=== PATIENT | male | born 1945 | race Caucasian/White ===

== ENCOUNTER 2017-09-22 16:00 | Emergency (ER) | payer OTHER ==
[~2017-09-22 16:00] MED LIST: AMIO200 PO; CITA20TA4 PO; D31000CA PO; HYDRA25 PO; LISI-363 PO; METF500 PO; PRAV40 PO; RIVA20 PO
[2017-09-22 16:20] VITALS: BP 142/71; PULSE 52; RESP 18; TEMP 98.5; O2SAT 98
--- NOTE | 2017-09-22 17:01 | RADRPT ---
EXAM DATE/TIME: 09/22/2017 16:39 [place] COMPARISON: CHEST SINGLE AP, November 21, 2015, 18:15. INDICATIONS : Shortness of breath today. MEDICAL HISTORY : Afib. Diabetes. SURGICAL HISTORY : Ablation. ENCOUNTER: Initial ACUITY: 1 day PAIN SCORE: 0/10 LOCATION: Bilateral chest FINDINGS: PA and lateral views of the chest demonstrate the lungs to be symmetrically aerated without evidence of mass, infiltrate or effusion. The cardiomediastinal contours are unremarkable. Osseous structure s demonstrate mild degenerative changes but are otherwise intact. CONCLUSION: 1. No acute cardiopulmonary findings identified. Heriberto Riddle MD on September 22, 2017 at 16:57 Board Certified Radiologist. This report was verified electronically.
[2017-09-22 17:02] LABS: AUTOMATED NEUTROPHIL # 9.1 TH/MM3 (1.8-7.7); BASOPHIL # 0.1 TH/MM3 (0-0.2); BASOPHIL % 0.6 % (0.0-2.0); EOSINOPHIL # 0.4 TH/MM3 (0-0.4); EOSINOPHIL % 3.8 % (0.0-4.0); HEMOGLOBIN 13.4 GM/DL (13.0-17.0); LYMPH % 6.4 % (9.0-44.0); LYMPHOCYTE # 0.7 TH/MM3 (1.0-4.8); MEAN CELL VOLUME 88.7 FL (80.0-100.0); MEAN CORPUSCULAR HEMOGLOBIN 30.5 PG (27.0-34.0); MEAN CORPUSCULAR HGB CONC 34.4 % (32.0-36.0); MEAN PLATELET VOLUME 8.7 FL (7.0-11.0); MONO % 8.8 % (0.0-8.0); NEUT % 80.4 % (16.0-70.0); PLATELET COUNT 207 TH/MM3 (150-450); RED CELL DISTRIBUTION WIDTH 13.9 % (11.6-17.2); WHITE BLOOD COUNT 11.3 TH/MM3 (4.0-11.0)
[2017-09-22 17:03] VITALS: RESP 55; O2SAT 96
--- NOTE | 2017-09-22 17:06 | PD ---
HPI Chief Complaint: Respiratory Symptoms Time Seen by Provider: 16:53 Travel History International Travel<30 days: No Contact w/Intl Traveler<30days: No Traveled to known affect area: No History of Present Illness HPI 71-year-old male with history of CHF, atrial fibrillation status post ablation, sleep apnea with CPAP use, presents for evaluation of dyspnea. For the past 4 days he has had cough and nasal congestion. The cough is productive. Symptoms are worse in the morning. He reports that 2 hours ago he had an episode in which she felt like he could not breathe at all. This lasted for 15-20 seconds and it occurred twice. Symptoms have since resolved. He is now asymptomatic. He denies any episodes of chest pain. He denies fevers or chills. He denies nausea, vomiting, abdominal pain, lower extremity edema. He has been compliant with his medication. He denies any dietary indiscretions. He has no other complaints at this time. PFSH Past Medical History Hx Anticoagulant Therapy: Yes Atrial Fibrillation: Yes Anxiety: No Depression: No Heart Rhythm Problems: Yes Cancer: No Cardiac Catheterization: No Cardiovascular Problems: Yes (HX OF A-FIB, ABLATION) High Cholesterol: No Chest Pain: Yes Congestive Heart Failure: No Diabetes: Yes Diminished Hearing: No Endocrine: Yes Genitourinary: No Hypertension: Yes Immune Disorder: No Musculoskeletal: No Neurologic: No Psychiatric: No Reproductive: No Respiratory: Yes (SLEEP APNEA - USES CPAP ) Sleep Apnea: Yes (C-PAP AT NIGHT) Thyroid Disease: No Past Surgical History Abdominal Surgery: No AICD: No Arteriovenous Shunt: No Cardiac Surgery: Yes (ABLATION ) Coronary Artery Bypass Graft: No Ear Surgery: No Endocrine Surgery: No Eye Surgery: No Genitourinary Surgery: No Gynecologic Surgery: No Insulin Pump: No Joint Replacement: No Oral Surgery: Yes Pacemaker: No Thoracic Surgery: No Tonsillectomy: Yes Other Surgery: Yes Social History Alcohol Use: No Tobacco Use: No Substance Use: No Allergies-Medications (Allergen,Severity, Reaction): Coded Allergies: No Known Allergies (Unverified , 11/21/15) Reported Meds & Prescriptions Reported Meds & Active Scripts Active Proair Hfa 8.5 GM Inh (Albuterol Sulfate) 90 Mcg/Act Aer 2 Puff INH Q4-6H PRN 108 mcg/actuation Doxycycline Hyclate 100 Mg Cap 100 Mg PO BID Reported Tamsulosin (Tamsulosin HCl) 0.4 Mg Cap 0.4 Mg HS Amlodipine (Amlodipine Besylate) 10 Mg Tab 10 Mg PO DAILY Finasteride 5 Mg Tab 5 Mg DAILY Do not crush. Xarelto (Rivaroxaban) 15 Mg Tab 15 Mg PO DAILY Citalopram (Citalopram Hydrobromide) 20 Mg Tab 20 Mg PO DAILY Bumetanide 1 Mg Tab 1 Mg PO DAILY Lisinopril 20 Mg Tab 20 Mg PO DAILY Pravastatin 40 Mg Tab 40 Mg PO DAILY Review of Systems Except as stated in HPI: all other systems reviewed are Neg Physical Exam Narrative GENERAL: Pleasant well-developed well-nourished male in no acute distress SKIN: Warm and dry. HEAD: Atraumatic. Normocephalic. EYES: Pupils equal and round. No scleral icterus. No injection or drainage. ENT: No nasal bleeding or discharge. Mucous membranes pink and moist. NECK: Trachea midline. No JVD. CARDIOVASCULAR: Regular rate and rhythm. No murmur appreciated. RESPIRATORY: No accessory muscle use. Clear to auscultation. Breath sounds equal bilaterally. GASTROINTESTINAL: Abdomen soft, non-tender, nondistended. Hepatic and splenic margins not palpable. MUSCULOSKELETAL: No obvious deformities. No clubbing. No cyanosis. No edema. NEUROLOGICAL: Awake and alert. No obvious cranial nerve deficits. Motor grossly within normal limits. Normal speech. PSYCHIATRIC: Appropriate mood and affect; insight and judgment normal. Data Data Last Documented VS Vital Signs Date Time Temp Pulse Resp B/P (MAP) Pulse Ox O2 Delivery O2 Flow Rate FiO2 09/22/17 17:20 97 21 09/22/17 17:03 57 18 Room Air 09/22/17 16:20 98.5 142/71 (94) Orders Orders Electrocardiogram (09/22/17 16:24) Complete Blood Count With Diff (09/22/17 16:24) Basic Metabolic Panel (Bmp) (09/22/17 16:24) Ckmb (Isoenzyme) Profile (09/22/17 16:24) Troponin I (09/22/17 16:24) Iv Access Insert/Monitor (09/22/17 16:24) Ecg Monitoring (09/22/17 16:24) Oxygen Administration (09/22/17 16:24) Oximetry (09/22/17 16:24) Act Partial Throm Time (Ptt) (09/22/17 16:24) Prothrombin Time / Inr (Pt) (09/22/17 16:24) B-Type Natriuretic Peptide (09/22/17 16:24) Chest, Pa & Lat (09/22/17 ) Albuterol-Ipratropium Neb (Duoneb Neb) (09/22/17 17:15) CKMB (09/22/17 16:30) CKMB% (09/22/17 16:30) Doxycycline (Vibramycin) (09/22/17 18:30) Ed Discharge Order (09/22/17 18:21) Labs Laboratory Tests Test 09/22/17 16:30 White Blood Count 11.3 TH/MM3 Red Blood Count 4.40 MIL/MM3 Hemoglobin 13.4 GM/DL Hematocrit 39.0 % Mean Corpuscular Volume 88.7 FL Mean Corpuscular Hemoglobin 30.5 PG Mean Corpuscular Hemoglobin Concent 34.4 % Red Cell Distribution Width 13.9 % Platelet Count 207 TH/MM3 Mean Platelet Volume 8.7 FL Neutrophils (%) (Auto) 80.4 % Lymphocytes (%) (Auto) 6.4 % Monocytes (%) (Auto) 8.8 % Eosinophils (%) (Auto) 3.8 % Basophils (%) (Auto) 0.6 % Neutrophils # (Auto) 9.1 TH/MM3 Lymphocytes # (Auto) 0.7 TH/MM3 Monocytes # (Auto) 1.0 TH/MM3 Eosinophils # (Auto) 0.4 TH/MM3 Basophils # (Auto) 0.1 TH/MM3 CBC Comment DIFF FINAL Differential Comment Prothrombin Time 12.0 SEC Prothromb Time International Ratio 1.2 RATIO Activated Partial Thromboplast Time 88.2 SEC Blood Urea Nitrogen 25 MG/DL Creatinine 1.38 MG/DL Random Glucose 98 MG/DL Calcium Level 8.9 MG/DL Sodium Level 139 MEQ/L Potassium Level 4.7 MEQ/L Chloride Level 103 MEQ/L Carbon Dioxide Level 31.7 MEQ/L Anion Gap 4 MEQ/L Estimat Glomerular Filtration Rate 51 ML/MIN Total Creatine Kinase 228 U/L Creatine Kinase MB 0.7 NG/ML Troponin I LESS THAN 0.02 NG/ML B-Type Natriuretic Peptide 100 PG/ML MDM Medical Decision Making Medical Screen Exam Complete: Yes Emergency Medical Condition: Yes Medical Record Reviewed: Yes Differential Diagnosis Bronchitis, pneumonia, CHF exacerbation, mucous plug, bronchiectasis Narrative Course 71-year-old male with cough and congestion for for 5 days presents after having 226 abdominal pain which he felt like he could not breathe today. He appears well. Currently asymptomatic. Lab work, chest x-ray were obtained in triage. Chest x-ray reveals no acute abnormalities. CBC reveals a WBC count 11.3. BMP reveals a GFR 51, cardiac enzymes negative, BNP within normal limits. The patient was given a DuoNeb treatment which he reports seem to help as well. Plan is to discharge him with doxycycline and albuterol inhaler. Diagnosis Primary Impression: Bronchitis Additional Instructions: Medication as prescribed. Use [id number] guaifenesin as a cough expectorant. Follow-up with primary care physician and return for any emergent medical conditions. Med/Other Pt SpecificInfo: Prescription(s) given Scripts Albuterol 8.5 GM Inh (Proair Hfa 8.5 GM Inh) 90 Mcg/Act Aer 2 PUFF INH Q4-6H Y for SHORTNESS OF BREATH, #1 INHALER 0 Refills 108 mcg/actuation Prov: Moisés Traore MD 09/22/17 Doxycycline Hyclate (Doxycycline Hyclate) 100 Mg Cap 100 MG PO BID for Infection, #20 CAP 0 Refills Prov: Moisés Traore MD 09/22/17 Disposition: 01 DISCHARGE HOME Condition: Stable César Jones Sep 22, 2017 17:06
[2017-09-22 17:11] LABS: INTERNATIONAL NORMALIZED RATIO 1.2 RATIO
[2017-09-22] MEDS ORDERED: RESP: ALBUTEROL 2.5 MG/IPRATROPIUM 0.5 MG NEB (SCH) INH ONE (17:15)
[2017-09-22] MEDS ORDERED: PRAV40TA2 PO (17:16)
[2017-09-22] MEDS ORDERED: BUME1TAB PO (17:16)
[2017-09-22] MEDS ORDERED: TAMS0.4C4 (17:16)
[2017-09-22] MEDS ORDERED: LISI-515 PO (17:16)
[2017-09-22] MEDS ORDERED: FINA5TAB2 (17:16)
[2017-09-22] MEDS ORDERED: AMLO10TA2 PO (17:16)
[2017-09-22] MEDS ORDERED: XARE15TA PO (17:16)
[2017-09-22] MEDS ORDERED: CITA20TA4 PO (17:16)
[2017-09-22 17:20] VITALS: O2SAT 97
[2017-09-22 17:41] LABS: BICARBONATE 31.7 MEQ/L (21.0-32.0); BLOOD UREA NITROGEN 25 MG/DL (7-18); CALCIUM 8.9 MG/DL (8.5-10.1); CHLORIDE 103 MEQ/L (98-107); CREATININE 1.38 MG/DL (0.60-1.30); GLOMERULAR FILTRATION RATE 51 ML/MIN (>89); GLUCOSE,RANDOM 98 MG/DL (74-106); SODIUM (NA) 139 MEQ/L (136-145)
[2017-09-22 17:44] LABS: TROPONIN I LESS THAN 0.02 NG/ML (0.02-0.05)
[2017-09-22] MEDS ORDERED: ALBUAER3 INH (18:18)
[2017-09-22] MEDS ORDERED: DOXY100C PO (18:18)
[2017-09-22] MEDS ORDERED: DOXYCYCLINE HYCLATE 100 MG CAP PO ONE (18:30)
--- NOTE | 2017-09-24 14:42 | EKG ---
Date Performed: 09/22/2017 Time Performed: 16:29:18 PTAGE: 71 years EKG: ECTOPIC ATRIAL BRADYCARDIA MODERATE INTRAVENTRICULAR CONDUCTION DELAY ABNORMAL RHYTHM ECG PREVIOUS TRACING : 11/21/2015 18.10 Since previous tracing, ectopic atrial bradycardia has repl aced Sinus rhythm . PVCs no longer present. DOCTOR: Stephane Bosch Interpretating Date/Time 09/24/2017 14:40:44
== END 2017-09-22 19:00 | disposition home or self-care (01) ==
LOC: NEPC 16:00
DX: J40 Bronchitis, not specified as acute or chronic (principal); R94.31 Abnormal electrocardiogram [ECG] [EKG]; I11.0 Hypertensive heart disease with heart failure; I50.9 Heart failure, unspecified; I48.91 Unspecified atrial fibrillation; G47.30 Sleep apnea, unspecified; E11.9 Type 2 diabetes mellitus without complications
CPT/HCPCS: 71046; 80048; 82550; 82552; 83880; 84484; 85025; 85610; 85730; 93005; 94664; 99285